=== PATIENT | female | born 1980 | race American Indian/Alaskan Native ===

== ENCOUNTER 2016-10-05 09:18 | Observation (INO) | payer MEDICAID ==
[2016-10-03 12:49] LABS: Hematocrit 30.9 % (30.3-42.9); Hemoglobin 9.7 gm/dl (10.1-14.3); Mean Corpuscular HGB Conc 31 % (30-34); Mean Corpuscular Hemoglobin 23 pg (28-32); Mean Corpuscular Volume 75 fl (79-97); Mean Platelet Volume 9.4 fl (6-12); Platelet Count 356 K/mm3 (140-440); Red Blood Count 4.15 M/mm3 (3.65-5.03); Red Cell Distribution Width 17.4 % (13.2-15.2); White Blood Count 7.3 K/mm3 (4.5-11.0)
[2016-10-03 13:26] LABS: Anion Gap 19 mmol/L; BUN/Creatinine Ratio 12.85; Blood Urea Nitrogen 9 mg/dL (7-17); Calcium 8.8 mg/dL (8.4-10.2); Carbon Dioxide 19 mmol/L (22-30); Chloride 107.7 mmol/L (98-107); Glucose 94 mg/dL (65-100); Potassium 3.9 mmol/L (3.6-5.0); Sodium 142 mmol/L (137-145)
--- NOTE | 2016-10-05 07:03 | History and Physical Report ---
History of Present Illness Date of examination: 10/03/16 Date of admission: 10/05/2016 Chief complaint: 36y/o with symptomatic uterine fibroids. The patient reports abnormal bleeding with the passage of clots. She also notes having pelvic pain. She has history of uterine fibroids. She has elected for surgical management. Ultrasound findings of a 12.5 cm uterus with largest myoma being 5.2cm History of present illness: Patient has been reassessed/reevaluated/re-examined. H&P has been reviewed. No interval changes. Past History Past Medical History: GERD, other (fibroids) Past Surgical History: other (reduction mammoplasty; tubal ligation) Social history: - Obstetrical History : 4 Para: 4 Hx # Term Pregnancies: 4 Number of Pregnancies: 0 Spontaneous Abortions: 0 Induced : 0 Number of Living Children: 3 Medications and Allergies Allergies Allergy/AdvReac Type Severity Reaction Status Date / Time No Known Allergies Allergy Unverified 09/29/16 17:19 Home Medications Medication Instructions Recorded Confirmed Last Taken Type Ibuprofen [Motrin] 200 mg PO Q6H PRN 09/29/16 09/29/16 Unknown History Ranitidine HCl [Heartburn Relief] 150 mg PO BID 09/29/16 09/29/16 Unknown History Review of Systems Genitourinary: vaginal bleeding - Vital Signs Vital signs: Vital Signs Temp Pulse Resp BP 97.4 F L 72 20 110/70 10/03/16 11:34 10/03/16 11:34 10/03/16 11:34 10/03/16 11:34 Temp Pulse Resp BP Pulse Ox 97.4 F L 72 20 110/70 10/03/16 11:34 10/03/16 11:34 10/03/16 11:34 10/03/16 11:34 - Physical Exam Breasts: Positive: deferred Cardiovascular: Regular rate Lungs: Positive: Clear to auscultation Abdomen: Positive: normal appearance Results Result Diagrams: 10/03/16 11:24 10/03/16 11:24 All other labs normal. Assessment and Plan - Patient Problems (1) DUB (dysfunctional uterine bleeding) Current Visit: Yes Status: Acute Plan to address problem: scheduled for robotic hysterectomy and bilateral salpingectomy (2) Leiomyoma Current Visit: Yes Status: Acute (3) Pelvic pain Current Visit: Yes Status: Acute
[~2016-10-05 09:18] MED LIST: ANCEF/STERILE WATER 2 GM/20 ML 2 GM/20 ML SYRINGE IV SCH; DILAUDID IV PRN; NACL 0.9% 1000 ML 1,000 ML IV SCH; NEOSPORIN GU IR ONE; XYLOCAINE 1% 20 mL INFILTRATI NR; ZOFRAN IV PRN
[2016-10-05] MEDS ORDERED: MARCAINE-EPI/PF 0.5%-1:200,000 INFILTRATI ONE (09:50)
[2016-10-05] MEDS ORDERED: MARCAINE-EPI 0.25%-1:200,000 INFILTRATI ONE (09:51)
[2016-10-05] MEDS ORDERED: NACL P/F VIAL (10 ML) INFILTRATI NR (10:00)
[2016-10-05] MEDS ORDERED: NEURONTIN PO NR (10:00)
[2016-10-05] MEDS ORDERED: VERSED IV NR (10:00)
[2016-10-05] MEDS ORDERED: PEPCID PO NR (10:00)
[2016-10-05] MEDS ORDERED: SUBLIMAZE IV ONE (10:00)
[2016-10-05] MEDS ORDERED: DIPRIVAN 10 MG/ML IV ONE (10:45)
[2016-10-05] MEDS ORDERED: XYLOCAINE MPF 2% ONE (10:46)
[2016-10-05] MEDS ORDERED: DILAUDID ONE (10:46)
[2016-10-05] MEDS ORDERED: ZEMURON IV ONE (10:46)
[2016-10-05] MEDS ORDERED: MARCAINE 0.5% INFILTRATI NR (11:00)
--- NOTE | 2016-10-05 11:06 | Anesthesia Day of Surgery ---
Anesthesia Day of Surgery - Day of Surgery Patient Examined: Yes Patient H&P Reviewed: Yes Patient is NPO: Yes
--- NOTE | 2016-10-05 11:06 | Anesthesia Consultation ---
Anesthesia Consult and Med Hx - Airway Anesthetic Teeth Evaluation: Good ROM Head & Neck: Adequate Mental/Hyoid Distance: Adequate Mallampati Class: Class II Intubation Access Assessment: Good - Pulmonary Exam CTA: Yes - Cardiac Exam Cardiac Exam: RRR - Pre-Operative Health Status ASA Pre-Surgery Classification: ASA3 Proposed Anesthetic Plan: General - Pulmonary Hx Smoking: Yes (occasional) - Central Nervous System Hx Psychiatric Problems: No - Gastrointestinal Hx Gastroesophageal Reflux Disease: Yes - Hematic Hx Anemia: Yes - Other Systems Hx Alcohol Use: Yes (occas) Hx Substance Use: Yes (marijuana daily) Hx Cancer: No Hx Obesity: Yes
[2016-10-05] MEDS ORDERED: GELFOAM POWDER 1GM MM ONE ×2 (11:52→12:15)
[2016-10-05] MEDS ORDERED: THROMBIN (BOVINE) TP ONE (11:58)
[2016-10-05] MEDS ORDERED: NACL 0.9% IR ONE ×2 (12:02→12:03)
[2016-10-05] MEDS ORDERED: NEOSPORIN GU IR ONE (12:03)
[2016-10-05] MEDS ORDERED: THROMBIN SPRAYKIT (BOVINE) TP ONE (12:15)
[2016-10-05] MEDS ORDERED: NEOSTIGMINE ONE (12:21)
[2016-10-05] MEDS ORDERED: ROBINUL ONE (12:21)
[2016-10-05] MEDS ORDERED: ZOFRAN ONE (12:22)
[2016-10-05] MEDS ORDERED: DECADRON ONE (12:23)
[2016-10-05] MEDS ORDERED: NARCAN 0.4 MG/1 ML IV PRN (12:26)
[2016-10-05] MEDS ORDERED: NACL 0.9% 1000 ML 1,000 ML ONE (12:26)
--- NOTE | 2016-10-05 12:26 | Operative Report ---
Operative Report Operative Report: Date of surgery: 10/05/2016 Preoperative diagnoses: Symptomatic uterine fibroids; dysfunctional uterine bleeding; pelvic pain Postoperative diagnoses: same as above Procedure: Robotic hysterectomy; bilateral salpingectomy Surgeon: Ivania Scanlon M.D. Vp Product: Carlos Genao Anesthesia: Gen. endotracheal anesthesia Estimated blood loss: 75 mL Pathology: Uterus, cervix, tubes Indication: 36-year-old black female with a history of symptomatic uterine fibroids. The patient elected to undergo definitive surgical management. Procedure: The patient was taken to the operating room and given general endotracheal anesthesia without complication. She is prepped and draped in a normal sterile fashion. A bivalve speculum was placed in the patient's vagina and a single- tooth tenaculum placed on the anterior lip of the cervix. The uterus was sounded with the uterine sound. A [employer] uterine manipulator was placed in the bivalve speculum was then removed. Attention was then turned to the patient's abdomen where a millimeter supra umbilical skin incision was then made. A Veress needle was placed and peritoneal entry was verified water-filled syringe. Insufflation of the peritoneal cavity was performed with CO2 gas. The 12 mm trocar was then placed under direct visualization. An additional 8 mm trocar was placed on the patient's left and right lateral side just opposite of the supraumbilical trocar. An additional 5 mm right lateral trocar was then placed as the accessory port. The patient was then placed in steep Trendelenburg. The da Isela robot was then engaged. A fenestrated forcep was placed in arm 2 and a vessel sealer was placed in arm 1. The surgeon then transferred to the surgical console. General survey of the abdomen and pelvis revealed an enlarged fibroid uterus with multiple leiomyomas. Normal ovaries and tubes bilaterally. The mesosalpinx was then isolated on the right. The vessel sealer was used to coagulate the mesosalpinx which was then transected. The tube was transected from the ovary. The tubo-ovarian ligament was then coagulated and transected. The round ligament was then coagulated and transected also. The vesicouterine peritoneum was then entered from the patient 's right side. The uterine vessels were then coagulated with the vessel sealer. The vessels were then transected . Attention was then turned to the patient's left side where the tubo-ovarian ligament and mesosalpinx were again isolated coagulated and transected. The vesical peritoneum was then entered from the left and joined in the midline. Peritoneum was reflected off of the lower uterine segment. Uterine vessels were then coagulated and then transected. The blood supply to the uterus was adequately contained, a posterior colpotomy was made. The V care ring was visualized. Posterior colpotomy was created with the monopolar scissors. The incision was continued circumferentially until anterior colpotomy was made. The cervix and uterus were amputated from the vaginal cuff. The uterus was then removed along with the tubes bilaterally through the vagina and a warm laparotomy sponge was placed and maintain the pneumoperitoneum. The vaginal cuff was then closed in a running fashion with V lock suture. Irrigation of the pelvis was performed. Tisseel was applied to the incision. The supraumbilical 12 mm trocar site was closed with the Jacoby Herring device. The skin was then reapproximated with 4 -0 Monocryl. The tissue was sent to pathology which included the cervix and uterus. The patient was then successfully extubated. She was then taken to the recovery room in stable condition. All sponge laps and needle counts were correct x2.
[2016-10-05] MEDS ORDERED: MILK OF MAGNESIA PO PRN (12:27)
[2016-10-05] MEDS ORDERED: PERCOCET 5/325 PO PRN (12:27)
[2016-10-05] MEDS ORDERED: MOTRIN PO PRN (12:27)
--- NOTE | 2016-10-05 12:52 | Admit Criteria Form ---
Admission Criteria Documentation: AMBULATORY SURGERY EXCEPTION CRITERIA Ambulatory Surgery Exception Criteria ( Place 'X' for any and all applicable criteria): Surgery or procedure performed on ambulatory basis may require inpatient stay for[A] ANY ONE of the following(1)(2)(3)(4)(5)(6)(7)(8)(9): [X] I. A preoperative situation, condition, or finding that warrants inpatient stay as indicated by ANY ONE of the following: [] a) Inpatient care needed because of severity of a disease or condition rather than the surgery (eg, severe cardiac or respiratory disease, severe infection) (15) (16 ) (17) (18) [] b) Emergent procedure (eg, angioplasty for acute ischemia)(19) [] c) Complex surgical approach or situation as indicated by ANY ONE of the following(3): [] i) Open approach needed instead of usual endoscopic, transcatheter, or other less invasive procedure [] ii) Difficult approach because of previous operation [] iii) Airway monitoring required after open neck procedures(20)(21) [] iv) Large mass requiring unusually extensive dissection [] v) Additional complicating feature requiring inpatient care (eg, drain management)(22(23): [X] d) Major surgery in a pt with high anesthetic risk as indicated by ANY ONE of the following (2)(3)(5)(7)(8): [X] i) ASA risk class III or higher (severe systemic disease impairing function) [D] [] ii) Advanced age (eg, older than 85 years)(14)(24) [] iii) Symptomatic heart failure(25) [] iv) Symptomatic asthma or COPD(8)(21) [] v) Morbid obesity with hemodynamic or respiratory problems(20)( 21)(26)(27) [] vi) Obstructive sleep apnea(20)(21) [] vii) Former premature infants who are younger than 60 weeks [] viii) High risk for severe postoperative abnormalities (eg, severe postoperative hypocalcemia after parathyroidectomy for severe hyperparathyroidism)(27)( 28) [] ix) Unstable angina(25) [] e) Drug-related risk requiring inpatient stay as indicated by ANY ONE of the following(5)(10)(14)(32)(33) [] i) Procedure requires discontinuing drugs or other therapy (eg , antiarrhythmic medication, antiseizure medication), which necessitates inpatient observation or treatment.(18)(31) [] ii) Major surgery and high risk drug use as indicated by ANY ONE of the following: [] 1) Active abuse of cocaine or similar drug [] 2) Monoamine oxidase inhibitor use [] 3) Other drug identified as posing risk [] f) Inadequate outpatient care situation as indicated by ANY ONE of the following(5)(10)(14)(32)(33) [] i) Patient lives remote from medical facility and procedure has urgent complication potential, and temporary nearby residence cannot be arranged [] ii) Patient will have postprocedure incapacitation and inadequate assistance at home, or alternative level of care cannot be arranged. [] iii) Patient will have long general anesthesia or procedure side effect resolution time, and competent person to stay with patient on first postoperative night at home or alternative level of care cannot be arranged. []iv) Other inadequate outpatient situation that cannot be handled by other means [] II. A perioperative event, condition, or finding that warrants inpatient stay as indicated by ANY ONE of the following (1)(2)(3): [] a) Inadequate physiologic recovery: cardiovascular, respiratory, or hemodynamic status not normal or near preoperative baseline(18) [] b) Hemodynamic instability [] c) Patient not alert with near normal or baseline mental status [] d) Temperature not normal or as expected and not appropriate for outpatient treatment of condition [] e) Ambulatory or appropriate activity level status not yet achieved post procedure [E](34)(35)(36) [] f) Operative site not appropriate (eg, unexpected or excessive drainage or bleeding) [] g) Postoperative effects not resolved or adequately managed (eg, significant pain or vomiting not appropriate for outpatient or next level of care)(10)(12) [] h) Complicating features requiring inpatient care as indicated by ANY ONE of the following(37): [] i) Severe complications of procedure (eg, bowel injury, airway compromise, vascular injury,severe hemorrhage) [] ii) Extensive (eg, dissection far beyond usual scope of procedure ) or prolonged (eg, 120 minutes beyond usual) surgery needed requiring inpatient postoperative care [] iii) Conversion to an open or complex procedure that requires inpatient care (eg, open vs laparoscopic cholecystectomy, abdominal vs vaginal hysterectomy)(38) [] iv) Comorbid condition or test result identified during or post procedure that requires inpatient care (7) [] v) Malignant hyperthermia(30) [] vi) Other complicating feature requiring inpatient care(22)(23) Inpatient stay may be needed until ALL of the following are present (1)(2)(3)(4) (5)(6)(10)(14)(33)(40): []a) Physiologic recovery: cardiovascular, respiratory, and hemodynamic status normal or near preoperative baseline []b) Hemodynamic stability []c) Patient alert, with near normal or baseline mental status []d) Temperature appropriate: patient afebrile or temperature appropriate for outpt treatment of condition []e) Activity level appropriate: ambulatory or appropriate activity level post procedure []f) Operative site appropriate as indicated by ALL of the following: []i) Site dry or with expected drainage []ii) Any blood noted is as expected for procedure. []g) Postoperative effects resolved or managed as indicated by ALL of the following: []i) Pain management appropriate for outpatient (or next level of) care(10) []ii) Minimal nausea and vomiting: if present, successfully treated with oral medication(12) []iii) Headache, dizziness, or drowsiness (if present) are mild. []h) Voiding status acceptable as indicated by ANY ONE of the following: []i) Voiding spontaneously []ii) No voiding but instructions given for follow-up in 6 to 8 hours []iii) Urinary catheter in place, and instructions given for follow-up []i) Complicating features requiring inpatient care manageable at a lower level of care(37) []j) Comorbid conditions manageable at a lower level of care(37) The original [facility] content created by [employer] has been revised. The portions of the content which have been revised are identified through the use of italic text or in bold, and [facility] [employer] has neither reviewed nor approved the modified material. All other unmodified content is copyright [employer]. Please see references footnoted in the original [employer] edition 2016 Admission Criteria Met: Yes
[2016-10-05] MEDS ORDERED: MORPHINE PCA 30MG/30ML IV SCH (13:00)
[2016-10-05] MEDS: TORADOL IV SCH ×2 (13:05→18:50)
--- NOTE | 2016-10-05 13:19 | Post Anesthesia Evaluation ---
- Post Anesthesia Evaluation Patient Participated: Yes Airway Patent: Yes Stable Respiratory Function: Yes Temp > 96.8F: Yes Pain Manageable: Yes Adequeate Hydration: Yes Anesthesia Complications: No Block Receding Appropriately: Yes
[2016-10-05] MEDS: ZOFRAN IV PRN (13:45)
[2016-10-05] MEDS: D5LR 1,000 ML IV SCH (18:16)
[2016-10-06] MEDS: TORADOL IV SCH ×2 (00:13→06:25)
[2016-10-06] MEDS: D5LR 1,000 ML IV SCH (00:26)
[2016-10-06 08:07] LABS: Hematocrit 27.1 % (30.3-42.9); Hemoglobin 8.3 gm/dl (10.1-14.3)
--- NOTE | 2016-10-06 08:26 | Progress Note ---
Assessment and Plan - Patient Problems (1) DUB (dysfunctional uterine bleeding) Current Visit: Yes Status: Acute Plan to address problem: Discharge home once patient is able to tolerate a regular diet and void spontaneously. (2) Leiomyoma Current Visit: Yes Status: Acute (3) Pelvic pain Current Visit: Yes Status: Acute Subjective - Subjective Date of service: 10/06/16 Interval history: Patient doing well. States that her pain is being controlled. She is tolerating a clear diet without complication. Patient reports: appetite normal, pain well controlled Objective - Vital Signs Latest vital signs: Vital Signs Temp Pulse Pulse Resp BP BP Pulse Ox 10/06/16 04:00 99.3 F 58 L 18 106/50 10/06/16 01:45 18 10/06/16 00:20 20 10/06/16 00:00 99.0 F 76 18 118/67 10/05/16 22:00 22 10/05/16 20:00 98.2 F 65 19 103/54 10/05/16 16:10 98.0 F 60 16 108/58 10/05/16 14:20 98.2 F 62 18 151/80 10/05/16 13:58 98 F 67 21 142/75 100 10/05/16 13:45 64 21 143/75 100 10/05/16 13:30 63 18 148/82 99 10/05/16 13:15 64 16 150/78 100 10/05/16 13:00 64 16 151/78 100 10/05/16 12:55 67 16 150/67 100 10/05/16 12:50 67 14 150/75 100 10/05/16 12:46 97 F L 79 13 149/84 100 10/05/16 11:09 98 F 72 18 114/66 99 10/05/16 10:45 62 10 L 122/64 97 10/05/16 10:30 63 10 L 121/67 97 10/05/16 10:25 73 10 L 115/62 97 10/05/16 10:20 73 10 L 116/63 97 10/05/16 10:15 69 10 L 126/62 97 10/05/16 10:10 72 13 116/60 97 10/05/16 10:05 70 13 117/62 97 10/05/16 10:00 71 13 117/65 97 10/05/16 09:25 98.0 F 72 18 114/66 99 Intake and Output 10/05/16 10/06/16 10/06/16 22:59 06:59 14:59 Intake Total 1100 1240 Output Total 800 900 Balance 300 340 Intake: IV 500 1000 D5lr 1,000 ml @ 125 mls/ 500 1000 hr IV DIRECT MOUSTAPHA Rx#: [id number] Oral 600 240 Output: Urine 800 900 Indwelling Catheter 800 900 Other: Total, Intake Amount 480 240 Total, Output Amount 300 900 Voiding Method Indwelling Catheter - Exam Abdomen: Present: normal appearance, soft - Labs Labs: Abnormal lab results 10/05/16 10/05/16 10/06/16 Range/Units 11:00 12:57 07:41 Hgb 8.3 L (10.1-14.3) gm/dl Hct 27.1 L (30.3-42.9) % POC Glucose 123 H 150 H (70-105)
--- NOTE | 2016-10-06 08:28 | Discharge Summary ---
Providers - Providers Date of Admission: 10/05/16 12:27 Date of discharge: 10/06/16 Attending physician: SENG CERON Primary care physician: MAYLIN CAMARENA Hospitalization Reason for admission: other (symptomatic uterine fibroids) Procedure: other (robotic hysterectomy and bilateral salpingectomy) Incision: normal, dry Discharge diagnosis: other (symptomatic uterine fibroids) Hospital course: Patient was admitted the day of surgery underwent a robotic hysterectomy and bilateral salpingectomy. Please see operative note for details of surgery her postoperative course is uneventful. Condition at discharge: Good Disposition: DC-01 TO HOME OR SELFCARE - Discharge Diagnoses (1) DUB (dysfunctional uterine bleeding) Status: Acute (2) Leiomyoma Status: Acute (3) Pelvic pain Status: Acute Plan - Discharge Medications Prescriptions: Docusate Sodium [Colace] 100 mg PO BID PRN #60 capsule PRN Reason: Constipation Ibuprofen [Motrin] 800 mg PO Q8HR PRN #60 tablet PRN Reason: Pain Oxycodone HCl/Acetaminophen [Percocet 7.5/325 mg] 1 each PO Q6HR PRN #45 tablet PRN Reason: Pain - Provider Discharge Summary Activity: no sex for 6 weeks, no heavy lifting 4 weeks, no strenuous exercise Diet: routine Instructions: routine Additional instructions: [] Smoking cessation referral if applicable(refer to patient education folder for contact #) [] Refer to [facility] Booklet Call your doctor immediately for: * Fever > 100.5 * Heavy vaginal bleeding ( >1 pad per hour) * Severe persistent headache * Shortness of breath * Reddened, hot, painful area to leg or breast * Drainage or odor from incision. * Keep incision clean and dry at all times and follow doctor's instructions regarding bathing/showering Follow-up in [address] Maldonado - Follow up plan
[2016-10-06] MEDS: ZOFRAN IV PRN (09:53)
[2016-10-06 12:41] VITALS: BP 117/53
--- NOTE | 2016-10-06 13:04 | Progress Note ---
Subjective Date of service: 10/06/16 Interval history: 1st POD after robotic hysterectomy Patient is in the bed, relatively comfortable. Pain is well controlled with pain meds. Had an episode of nausea after breakfast, was none yesterday. No anesthesia complications Objective - Constitutional Vitals: Vital Signs - 12hr 10/06/16 10/06/16 10/06/16 01:45 04:00 08:47 Temperature 99.3 F Pulse Rate [ 58 L From Monitor] Respiratory 18 18 20 Rate Blood Pressure 106/50 [Right Arm] 10/06/16 10/06/16 10/06/16 08:48 08:50 10:03 Temperature 98.7 F Pulse Rate [ 54 L From Monitor] Respiratory 20 20 18 Rate Blood Pressure 126/54 [Right Arm] 10/06/16 12:40 Temperature 98.6 F Pulse Rate [ 51 L From Monitor] Respiratory 16 Rate Blood Pressure 117/53 [Right Arm] - Labs CBC & Chem 7: 10/06/16 07:41 10/03/16 11:24 Labs: Abnormal lab results 10/06/16 Range/Units 07:41 Hgb 8.3 L (10.1-14.3) gm/dl Hct 27.1 L (30.3-42.9) %
== END 2016-10-06 15:00 | disposition home or self-care (01) ==
LOC: OR 09:18 → OB 12:27
PROVIDERS: ADMIT Obstetrics & Gynecology; ATTEND Obstetrics & Gynecology
DX: N93.8 Other specified abnormal uterine and vaginal bleeding (principal); D25.9 Leiomyoma of uterus, unspecified; D64.9 Anemia, unspecified; K21.9 Gastro-esophageal reflux disease without esophagitis; E66.9 Obesity, unspecified; R10.2 Pelvic and perineal pain; Z87.891 Personal history of nicotine dependence
CPT/HCPCS: 36415; 58571; 64450; 80048; 82962; 84703; 85014; 85018; 85027; 86850; 86900; 86901; 88307; 96374; 96375; 96376; A4217; G0378; J0690; J1100; J1170; J1885; J2250; J2270; J2405; J2704; J2710; J3010; J7030; J7121; S2900

== ENCOUNTER 2017-08-11 16:17 | Emergency (ER) | payer MEDICAID, OTHER ==
[2017-08-11 17:02] VITALS: BP 123/78
[2017-08-11] MEDS ORDERED: ULTRAM PO ONE (18:27)
[2017-08-11] MEDS ORDERED: ULTRAM ONE (18:28)
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
== END 2017-08-11 19:16 | disposition home or self-care (01) ==
LOC: ED 16:17
DX: M54.5 Low back pain (principal); M25.512 Pain in left shoulder; K21.9 Gastro-esophageal reflux disease without esophagitis; F17.200 Nicotine dependence, unspecified, uncomplicated
CPT/HCPCS: 99283